=== PATIENT | male | born 1955 | race Caucasian/White ===

== ENCOUNTER 2022-05-31 21:28 | Emergency (ER) | payer OTHER ==
[~2022-05-31] VITALS: Ht 177.8 cm; Wt 86.2 kg
[2022-05-31] MEDS ORDERED: IBUPROFEN 400 MG TABLET PO ONE (23:00)
[2022-05-31] MEDS ORDERED: IBUPROFEN 400 MG TABLET ONE (23:09)
[2022-06-01 09:51] VITALS: BP 137/77
== END 2022-06-01 09:52 ==
LOC: ER 21:38
DX: S93.492A Sprain of other ligament of left ankle, initial encounter (principal); F10.129 Alcohol abuse with intoxication, unspecified; Z60.2 Problems related to living alone; X50.1XXA Overexertion from prolonged static or awkward postures, initial encounter; Y93.89 Activity, other specified; Y92.89 Other specified places as the place of occurrence of the external cause; Y99.8 Other external cause status; Y90.9 Presence of alcohol in blood, level not specified
CPT/HCPCS: 73590-TC; 73610-TC; 73700-TC

== ENCOUNTER 2022-06-09 19:17 | Emergency (ER) | payer OTHER ==
[~2022-06-09] VITALS: Ht 175.3 cm; Wt 94.8 kg
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
[2022-06-09 20:37] LABS: BASOPHILS % (AUTO) 0.4 % (0.0-2.0); EOSINOPHILS % (AUTO) 3.5 % (0.0-6.0); HEMATOCRIT 36 % (39-51); LYMPHOCYTES # (AUTO) 1.7 K/uL (0.8-4.8); LYMPHOCYTES % (AUTO) 20.3 % (20.0-44.0); MEAN CORPUSCULAR HGB CONC 33 g/dl (31.0-36.0); MEAN CORPUSCULAR VOLUME 98 fL (80-96); MONOCYTES # (AUTO) 0.5 K/uL (0.1-1.30); MONOCYTES % (AUTO) 5.7 % (2.0-12.0); NEUTROPHILS % (AUTO) 70.1 % (43.0-81.0); PLATELET COUNT (AUTO) 183 K/uL (150-450); RED BLOOD CELL COUNT(AUTO) 3.66 MIL/uL (4.5-6.0); WHITE BLOOD COUNT (AUTO) 8.5 K/uL (4.3-11.0)
[2022-06-09 20:45] LABS: CALCIUM, SERUM 8.2 mg/dL (8.5-10.1); CREATININE 0.7 mg/dL (0.6-1.3); POTASSIUM 3.9 mmol/L (3.5-5.1)
[2022-06-09 20:51] LABS: ALBUMIN 3.3 g/dL (3.4-5.0); BILIRUBIN,DIRECT 0.1 mg/dL (0.0-0.2); BILIRUBIN,TOTAL 0.2 mg/dL (0.2-1.0); TOTAL PROTEIN, SERUM 6.8 g/dL (6.4-8.2)
--- NOTE | 2022-06-09 22:12 | NUR ---
urine sent to lab
[2022-06-09 22:58] LABS: BILIRUBIN,URINE NEGATIVE (NEGATIVE); COLOR,URINE YELLOW (YELLOW); LEUKOCYTE ESTERASE ,URINE NEGATIVE (NEGATIVE); NITRITE, URINE NEGATIVE (NEGATIVE); PH,URINE 5.5 (5.0-8.0); PROTEIN,URINE NEGATIVE (NEGATIVE); UGLUCOSE NEGATIVE (NEGATIVE); UROBILINOGEN,URINE 0.2 EU/dL (0.2)
[2022-06-09 23:02] LABS: BACTERIA,URINE Rare /HPF (None Seen); RBC,URINE 0-2 /HPF (0-2); SQUAMOUS EPITHELIAL CELL,UR Few /HPF (None Seen); WBC,URINE 0-2 /HPF (0-3)
--- NOTE | 2022-06-10 05:45 | NUR ---
Patient discharged to home in stable condition. Written and verbal after care instructions given. Patient verbalizes understanding of instruction.
[2022-06-10 06:06] VITALS: BP 148/89
== END 2022-06-10 05:45 | disposition home or self-care (01) ==
LOC: ER 19:24
DX: F10.129 Alcohol abuse with intoxication, unspecified (principal); Z60.2 Problems related to living alone; Y90.6 Blood alcohol level of 120-199 mg/100 ml
CPT/HCPCS: 36415; 80048-TC; 80076-TC; 81001; 85025-TC; G0480

== ENCOUNTER 2024-10-24 11:41 | Emergency (ER) | payer OTHER ==
[~2024-10-24] VITALS: Ht 177.8 cm; Wt 67.1 kg
[2024-10-24 12:14] LABS: APPEARANCE,URINE CLEAR (CLEAR); BLOOD, URINE NEGATIVE Ery/uL (NEGATIVE); LEUKOCYTE ESTERASE ,URINE NEGATIVE (NEGATIVE); NITRITE, URINE NEGATIVE (NEGATIVE); UGLUCOSE NEGATIVE (NEGATIVE)
[2024-10-24 12:23] LABS: PLATELET COUNT (AUTO) 266 K/uL (150-450); RED BLOOD CELL COUNT(AUTO) 3.95 MIL/uL (4.5-6.0); RED CELL DISTRIBUTION WIDTH 12.7 % (11.5-15.0); WHITE BLOOD COUNT (AUTO) 9.8 K/uL (4.3-11.0)
[2024-10-24 12:24] LABS: CALCIUM, SERUM 9.0 mg/dL (8.5-10.1); CREATININE 0.8 mg/dL (0.6-1.3); SODIUM SERUM 133 mmol/L (136-145); UREA NITROGEN, BLOOD 14 mg/dL (7-18)
[2024-10-24 12:35] LABS: ASPARTATE AMINOTRANSFERASE 14 U/L (15-37); TOTAL PROTEIN, SERUM 7.4 g/dL (6.4-8.2)
[2024-10-24 12:35] LABS: AMPHETAMINE, URINE NEGATIVE (NEGATIVE); BARBITURATE, URINE NEGATIVE (NEGATIVE); BENZODIAZEPINE, URINE NEGATIVE (NEGATIVE); CANNABINOID, URINE NEGATIVE (NEGATIVE); COCCAINE, URINE NEGATIVE (NEGATIVE); OPIATE, URINE NEGATIVE (NEGATIVE)
[2024-10-24 12:36] LABS: ALCOHOL, BLOOD < 3 mg/dL (0-10)
[2024-10-24] MEDS ORDERED: LORAZEPAM INJ 2 MG/ML VIAL ONE (21:57)
[2024-10-24] MEDS: HALOPERIDOL LACTATE INJ 5 MG/ML VIAL IM ONE (22:00)
[2024-10-24] MEDS: LORAZEPAM 4 MG/ML VIAL IM ONE (22:00)
[2024-10-25 08:00] VITALS: BP 125/64; TEMP 98.6; O2SAT 96
== END 2024-10-25 10:00 ==
LOC: ER 11:47
DX: R45.6 Violent behavior (principal); R45.850 Homicidal ideations; F32.A Depression, unspecified; I10 Essential (primary) hypertension; Z60.2 Problems related to living alone; Z20.822 Contact with and (suspected) exposure to COVID-19; Z79.899 Other long term (current) drug therapy
CPT/HCPCS: 99285; 96372 ×2; 85025; 80048; 80076; 81003; 36415; 87426; 80143; 80320; 80307; J2060 ×2; J1200; J1630; G0480